=== PATIENT | male | born 1985 | race Caucasian/White ===

== ENCOUNTER 2017-06-28 06:46 | Emergency (ER) | payer BC, OTHER ==
[~2017-06-28 06:46] MED LIST: TOBR5DRO OD
--- NOTE | 2017-06-28 07:14 | ER Report ---
History and Physical Time Seen By MD: 07:14 Hx. of Stated Complaint: SUDDEN PAIN 6AM MID BACK TO BELLY BUTTON TO LEFT SIDE AND RADIATING TO LEFT TESTICLE HPI/ROS CHIEF COMPLAINT: Left flank pain HISTORY OF PRESENT ILLNESS: Patient is 32-year-old male with sudden onset of left-sided flank pain radiating to the left groin area that started suddenly at 6 AM. Severity onset was 10 out of 10 currently patient is 8 out of 10 patient has associated nausea with the symptoms. Patient has no prior history of similar symptoms. He denies dysuria or hematuria. He denies any fevers or chills. REVIEW OF SYSTEMS: Constitutional: No fever, no chills. Eyes: No discharge. ENT: No sore throat. Cardiovascular: No chest pain, no palpitations. Respiratory: No cough, no shortness of breath. Gastrointestinal: Left-sided flank pain, nausea no vomiting or diarrhea Genitourinary: No hematuria. Musculoskeletal: Left-sided flank pain Skin: No rashes. Neurological: No headache. Allergies: Coded Allergies: No Known Drug Allergies (Unverified , 06/28/17) Home Meds Discontinued Scripts Tobramycin (TOBRAMYCIN) 5 Ml Drops, 2 GTT OD Q4HWA, #1 BOT Prov:ALEX BLAKELY MD 11/05/15 Past Medical/Surgical History Noncontributory towards this chief complaint Hx Substance Use Disorder: No Constitutional Vital Sign - Last 24 Hours 06/28/17 06/28/17 06/28/17 06/28/17 06:46 07:01 07:01 07:16 Temp 97.5 Pulse ??? 49 ? Resp 20 B/P (MAP) 134/71 134/71 (92) Pulse Ox 100 O2 Delivery Room Air 06/28/17 06/28/17 06/28/17 06/28/17 07:31 07:33 08:00 08:01 Pulse ??? 43 B/P (MAP) 129/84 (99) 132/83 (99) Pulse Ox 100 06/28/17 06/28/17 06/28/17 08:16 08:30 08:31 Pulse 46 52 B/P (MAP) 130/85 (100) Pulse Ox 100 99 Physical Exam General/Constitutional: Patient is awake, alert, appears quite uncomfortable secondary to pain Head: Normocephalic and atraumatic. Eyes: Conjunctival clear, Pupils are equal and reactive to light. Extraocular muscles are intact and symmetrical. Sclera are clear and anicteric. Oropharyngeal: Mucous membranes are moist. There is no pharyngeal erythema or exudate. There are no palatal petechiae. Uvula is midline and symmetrical. Cardiovascular: Heart is regular rate and rhythm without audible murmurs, rubs or gallops. Pulmonary: Lungs are clear to auscultation bilaterally. There are no wheezes, rales, or rhonchi. Chest rise is symmetrical Abdomen: Soft, nontender, no guarding or peritoneal signs. : Normal bilateral testicular lie, normal bilateral cremasteric reflexes Extremities: No gross deformities, No peripheral cyanosis. Able to move all 4 extremities. Neuro: Alert and oriented X3, Skin: No rashes, skin is warm dry and well perfused. Medical Decision Making Data Points Result Diagram: 06/28/17 0730 06/28/17 0730 Laboratory Hematology Test 06/28/17 07:00 06/28/17 07:30 Urine Color Deanna Urine Clarity Slightly-cloudy Urine pH 5.0 pH (4.8-9.5) Urine Specific [place] 1.036 Urine Protein 30 mg/dL (NEGATIVE) Urine Glucose (UA) Negative mg/dL (NEGATIVE) Urine Ketones Trace mg/dL (NEGATIVE) Urine Blood Negative (NEGATIVE) Urine Nitrite Negative (NEGATIVE) Urine Bilirubin Negative (NEGATIVE) Urine Urobilinogen 2.0 mg/dL (0.2-1.9) Urine Leukocyte Esterase Negative (NEGATIVE) Urine RBC 3 /HPF (0-2/HPF) Urine WBC 2 /HPF (0-5/HPF) Urine Squamous Epithelial Cells Few /LPF (</=FEW) Urine Transitional Epithelial Cells Few /LPF (NONE-FEW) Urine Bacteria Negative /HPF (NONE-FEW) Urine Mucus Few /HPF (NONE-FEW) Red Blood Count 5.22 M/uL (4.00-5.60) Mean Corpuscular Volume 92.3 fL (80.0-96.0) Mean Corpuscular Hemoglobin 32.5 pg (26.0-33.0) Mean Corpuscular Hemoglobin Concent 35.2 g/dL (32.0-36.0) Red Cell Distribution Width 12.7 % (11.5-14.5) Mean Platelet Volume 7.4 fL (7.2-11.1) Neutrophils (%) (Auto) 54.8 % (39.4-72.5) Lymphocytes (%) (Auto) 31.3 % (17.6-49.6) Monocytes (%) (Auto) 10.2 % (4.1-12.4) Eosinophils (%) (Auto) 2.4 % (0.4-6.7) Basophils (%) (Auto) 1.3 % (0.3-1.4) Nucleated RBC Relative Count (auto) 0.0 /100WBC Neutrophils # (Auto) 4.9 K/uL (2.0-7.4) Lymphocytes # (Auto) 2.8 K/uL (1.3-3.6) Monocytes # (Auto) 0.9 K/uL (0.3-1.0) Eosinophils # (Auto) 0.2 K/uL (0.0-0.5) Basophils # (Auto) 0.1 K/uL (0.0-0.1) Nucleated RBC Absolute Count (auto) 0.00 K/uL Sodium Level 137 mmol/L (137-145) Potassium Level 3.2 mmol/L (3.5-5.0) Chloride Level 104 mmol/L (98-107) Carbon Dioxide Level 17 mmol/L (22-30) Blood Urea Nitrogen 21 mg/dl (9-21) Creatinine 1.10 mg/dl (0.66-1.25) Glomerular Filtration Rate Calc > 60.0 Random Glucose 137 mg/dl (75-110) Calcium Level 9.4 mg/dl (8.4-10.2) Total Bilirubin 0.9 mg/dl (0.2-1.3) Aspartate Amino Transf (AST/SGOT) 35 U/L (0-35) Alanine Aminotransferase (ALT/SGPT) 48 U/L (0-56) Alkaline Phosphatase 100 U/L (0-126) Total Protein 7.5 gm/dl (6.3-8.2) Albumin 4.5 g/dl (3.5-5.0) Lipase 111 U/L (23-300) Chemistry Test 06/28/17 07:00 06/28/17 07:30 Urine Color Deanna Urine Clarity Slightly-cloudy Urine pH 5.0 pH (4.8-9.5) Urine Specific [place] 1.036 Urine Protein 30 mg/dL (NEGATIVE) Urine Glucose (UA) Negative mg/dL (NEGATIVE) Urine Ketones Trace mg/dL (NEGATIVE) Urine Blood Negative (NEGATIVE) Urine Nitrite Negative (NEGATIVE) Urine Bilirubin Negative (NEGATIVE) Urine Urobilinogen 2.0 mg/dL (0.2-1.9) Urine Leukocyte Esterase Negative (NEGATIVE) Urine RBC 3 /HPF (0-2/HPF) Urine WBC 2 /HPF (0-5/HPF) Urine Squamous Epithelial Cells Few /LPF (</=FEW) Urine Transitional Epithelial Cells Few /LPF (NONE-FEW) Urine Bacteria Negative /HPF (NONE-FEW) Urine Mucus Few /HPF (NONE-FEW) White Blood Count 9.0 k/uL (4.5-11.0) Red Blood Count 5.22 M/uL (4.00-5.60) Hemoglobin 16.9 g/dL (14.0-18.0) Hematocrit 48.2 % (42.0-52.0) Mean Corpuscular Volume 92.3 fL (80.0-96.0) Mean Corpuscular Hemoglobin 32.5 pg (26.0-33.0) Mean Corpuscular Hemoglobin Concent 35.2 g/dL (32.0-36.0) Red Cell Distribution Width 12.7 % (11.5-14.5) Platelet Count 247 K/uL (150-450) Mean Platelet Volume 7.4 fL (7.2-11.1) Neutrophils (%) (Auto) 54.8 % (39.4-72.5) Lymphocytes (%) (Auto) 31.3 % (17.6-49.6) Monocytes (%) (Auto) 10.2 % (4.1-12.4) Eosinophils (%) (Auto) 2.4 % (0.4-6.7) Basophils (%) (Auto) 1.3 % (0.3-1.4) Nucleated RBC Relative Count (auto) 0.0 /100WBC Neutrophils # (Auto) 4.9 K/uL (2.0-7.4) Lymphocytes # (Auto) 2.8 K/uL (1.3-3.6) Monocytes # (Auto) 0.9 K/uL (0.3-1.0) Eosinophils # (Auto) 0.2 K/uL (0.0-0.5) Basophils # (Auto) 0.1 K/uL (0.0-0.1) Nucleated RBC Absolute Count (auto) 0.00 K/uL Glomerular Filtration Rate Calc > 60.0 Calcium Level 9.4 mg/dl (8.4-10.2) Total Bilirubin 0.9 mg/dl (0.2-1.3) Aspartate Amino Transf (AST/SGOT) 35 U/L (0-35) Alanine Aminotransferase (ALT/SGPT) 48 U/L (0-56) Alkaline Phosphatase 100 U/L (0-126) Total Protein 7.5 gm/dl (6.3-8.2) Albumin 4.5 g/dl (3.5-5.0) Lipase 111 U/L (23-300) Urinalysis Test 06/28/17 07:00 Urine Color Deanna Urine Clarity Slightly-cloudy Urine pH 5.0 pH (4.8-9.5) Urine Specific [place] 1.036 Urine Protein 30 mg/dL (NEGATIVE) Urine Glucose (UA) Negative mg/dL (NEGATIVE) Urine Ketones Trace mg/dL (NEGATIVE) Urine Blood Negative (NEGATIVE) Urine Nitrite Negative (NEGATIVE) Urine Bilirubin Negative (NEGATIVE) Urine Urobilinogen 2.0 mg/dL (0.2-1.9) Urine Leukocyte Esterase Negative (NEGATIVE) Urine RBC 3 /HPF (0-2/HPF) Urine WBC 2 /HPF (0-5/HPF) Urine Squamous Epithelial Cells Few /LPF (</=FEW) Urine Transitional Epithelial Cells Few /LPF (NONE-FEW) Urine Bacteria Negative /HPF (NONE-FEW) Urine Mucus Few /HPF (NONE-FEW) EKG/Imaging Imaging FACILITY: [facility] PATIENT NAME: Brandon Mendez : 1985 MR: [id number] V: [id number] EXAM DATE: ORDERING PHYSICIAN: HEYDI NICHOLE TECHNOLOGIST: Location: [facility] - [place] Patient: Brandon Mendez : 1985 Visit/Account:[id number] Date of Sevice: 06/28/2017 CT abdomen and pelvis without IV contrast - Renal Stone Protocol History: Left flank pain COMPARISON STUDIES: none. TECHNIQUE: Axial CT images were obtained through the kidneys, ureters, and bladder without IV contrast. Reformatted coronal and sagittal images were also obtained. One of the following dose optimization techniques was utilized in the performance of this exam: Automated exposure control; adjustment of the mA and/ or kV according to the patient's size; or use of an iterative reconstruction technique. Specific details can be referenced in the facility's radiology CT exam operational policy. FINDINGS: CT Abdomen and Pelvis- Chest bases: Right major fissural 3 mm nodule, image 5, and a 3 mm noncalcified nodule adjacent to the pleura, image 4 are noted. Liver: Normal. Spleen: size is normal. Gallbladder and bile ducts: Gallbladder is present. Bile ducts are normal caliber. Pancreas: negative Adrenal glands: negative Right kidney and ureter: negative Left kidney and ureter: Mild distention of the left renal collecting system can be followed inferior to the UVJ, where there is a 2 mm stone in the distal ureter. Two punctate left kidney upper pole stones are nonobstructing, the largest measuring 2 mm. Renal parenchymal thickness is preserved. Pelvic structures: negative Bowel and mesenteries: negative Ascites: None Vessels: negative Musculoskeletal: Negative Body wall: negative Abd/Pelvis lymph node assessment: negative IMPRESSION: 1. Mild left renal collecting system distention caused by a 2 mm stone in the distal ureter at the UVJ. 2. Nonobstructing left nephrolithiasis. 3. Two small noncalcified nodules in the right lung base do not warrant imaging follow-up. Report Dictated By: Lynn Lizarraga MD at 06/28/2017 8:06 AM Report E-Signed By: Lynn Lizarraga MD at 06/28/2017 8:11 AM WSN:[id number] ED Course/Re-evaluation ED Course 06/28/2017 7:25:01 am bedside ultrasound shows moderate hydronephrosis of the left kidney. This would be consistent with suspected ureteral lithiasis. Plan at this time will be bloodwork including CBC CMP lipase, we'll obtain urinalysis. Also will place IV for pain medication we will give 50 mg of IV Toradol 4 mg of IV morphine 4 mg of IV Zofran. 06/28/2017 7:52:[address] scan shows a 1-2 mm stone at the left ureterovesicular junction. I am currently awaiting official radiological read. Pain is decreased according to the patient from 9.5-3. We will give an additional dose of morphine at this time. Decision to Disposition Date: Jun 28, 2017 Decision to Disposition Time: 09:03 Depart Departure Latest Vital Signs Vital Signs Date Time Temp Pulse Resp B/P (MAP) Pulse Ox O2 Delivery O2 Flow Rate FiO2 06/28/17 08:31 52 99 06/28/17 08:30 130/85 (100) 06/28/17 07:01 97.5 20 Room Air Impression: Primary Impression: Kidney stone Condition: Improved Disposition: HOME OR SELF-CARE Referrals: GERMÁN CARDENAS MD Schedule follow-up appointment for your kidney stone in the next few weeks. New Scripts Ondansetron (ZOFRAN ODT) 4 Mg Tab.rapdis 4 MG PO Q8H for Nausea, #20 TAB.AIMEE 0 Refills Prov: HEYDI NICHOLE MD 06/28/17 Oxycodone Hcl/Acet 5/325 Mg (ENDOCET 5-325 TABLET) 1 Each Tablet 1-2 EACH PO Q4-6H for PAIN, #20 TAB 0 Refills Prov: HEYDI NICHOLE MD 06/28/17 Departure Forms: ER Transition Record, Medications Reconciliation, Off Work/ School Form, School or Work Release?: Work Number of days to be released: 2 Patient Portal Information Patient Instructions: Kidney Stones (ED) HEYDI NICHOLE MD Jun 28, 2017 07:14
[2017-06-28] MEDS ORDERED: KETOROLAC 30 MG/ML VIAL IVP ONE (07:15)
[2017-06-28] MEDS ORDERED: ONDANSETRON 4 MG/2 ML VIAL IVP ONE (07:15)
[2017-06-28] MEDS ORDERED: MORPHINE 4 MG/ML SDV IVP ONE ×2 (07:15→07:55)
[2017-06-28 07:41] LABS: PLATELET COUNT, AUTOMATED 247 K/uL (150-450)
[2017-06-28] MEDS ORDERED: KETOROLAC 15 MG/ML VIAL IVP ONE (08:10)
--- NOTE | 2017-06-28 08:16 | RADIOLOGY IMAGING REPORT ---
FACILITY: [facility] - [place] PATIENT NAME: Brandon Mendez : 1985 MR: [id number] V: [id number] EXAM DATE: ORDERING PHYSICIAN: HEYDI NICHOLE TECHNOLOGIST: Location: [facility] [place] Patient: Brandon Mendez : 1985 Visit/Account:[id number] Date of Sevice: 06/28/2017 CT abdomen and pelvis without IV contrast - Renal Stone Protocol History: Left flank pain COMPARISON STUDIES: none. TECHNIQUE: Axial CT images were obtained through the kidneys, ureters, and bladder without IV contr ast. Reformatted coronal and sagittal images were also obtained. One of the following dose optimization techniques was utilized in the performance of this exam: Autom ated exposure control; adjustment of the mA and/or kV according to the patient's size; or use of an i terative reconstruction technique. Specific details can be referenced in the facility's radiology C T exam operational policy. FINDINGS: CT Abdomen and Pelvis- Chest bases: Right major fissural 3 mm nodule, image 5, and a 3 mm noncalcified nodule adjacent to th e pleura, image 4 are noted. Liver: Normal. Spleen: size is normal. Gallbladder and bile ducts: Gallbladder is present. Bile ducts are normal caliber. Pancreas: negative Adrenal glands: negative Right kidney and ureter: negative Left kidney and ureter: Mild distention of the left renal collecting system can be followed inferior to the UVJ, where there is a 2 mm stone in the distal ureter. Two punctate left kidney upper pole s tones are nonobstructing, the largest measuring 2 mm. Renal parenchymal thickness is preserved. Pelvic structures: negative Bowel and mesenteries: negative Ascites: None Vessels: negative Musculoskeletal: Negative Body wall: negative Abd/Pelvis lymph node assessment: negative IMPRESSION: 1. Mild left renal collecting system distention caused by a 2 mm stone in the distal ureter at the UV J. 2. Nonobstructing left nephrolithiasis. 3. Two small noncalcified nodules in the right lung base do not warrant imaging follow-up. Report Dictated By: Lynn Lizarraga MD at 06/28/2017 8:06 AM Report E-Signed By: Lynn Lizarraga MD at 06/28/2017 8:11 AM WSN:[id number]
[2017-06-28] MEDS ORDERED: OXYC-854 PO (09:12)
[2017-06-28] MEDS ORDERED: ONDA4TAB PO (09:12)
[2017-06-28 09:24] VITALS: BP 128/81
== END 2017-06-28 09:36 | disposition home or self-care (01) ==
LOC: ER 06:47
DX: N20.0 Calculus of kidney (principal)
CPT/HCPCS: 74176; 81001; 83690; 85025; 96374; 96375; 96376; 99284; J1885; J2405; 82040; 82247; 82310; 82374; 82435; 82565; 82947; 84075; 84132; 84155; 84295; 84450; 84460; 84520; J2270

== ENCOUNTER → 2018-02-28 | Outpatient (CLI) | payer BC ==
[~2018-02-28] MED LIST changes: +LOR5/325 PO; +ONDA4TAB PO; +OXYC-854 PO
--- NOTE | 2018-02-28 15:52 | RADIOLOGY IMAGING REPORT ---
FACILITY: [facility] - [place] PATIENT NAME: Brandon Mendez : 1985 MR: [id number] V: [id number] EXAM DATE: ORDERING PHYSICIAN: GERMÁN CARDENAS TECHNOLOGIST: Location: [facility] [place] Patient: Brandon Mendez : 1985 Visit/Account:[id number] Date of Sevice: 02/28/2018 CT abdomen and pelvis without IV contrast - Renal Stone Protocol History: Nephrolithiasis COMPARISON STUDIES: CT abdomen and pelvis 06/28/2017. TECHNIQUE: Axial CT images were obtained through the kidneys, ureters, and bladder without IV contr ast. Reformatted coronal and sagittal images were also obtained. One of the following dose optimization techniques was utilized in the performance of this exam: Autom ated exposure control; adjustment of the mA and/or kV according to the patient's size; or use of an i terative reconstruction technique. Specific details can be referenced in the facility's radiology C T exam operational policy. FINDINGS: CT Abdomen and Pelvis- Chest bases: Noncalcified right major fissural nodule, 3 mm, image 9, series 2, and right lower lobe 3 mm nodule adjacent to the pleura, image four, are unchanged. Liver: Normal. Spleen: size is normal. Gallbladder and bile ducts: Gallbladder is present. Bile ducts are normal caliber. Pancreas: negative Adrenal glands: negative Right kidney and ureter: No renal stones or hydronephrosis. Renal parenchymal thickness is preserve d. Left kidney and ureter: A punctate stone in the left kidney upper pole, image 104 series 3, is uncha nged. The other upper pole stone is not seen. The left distal stone in the ureter has passed. Ther e is no hydronephrosis. Renal parenchymal thickness is preserved. Pelvic structures: negative Bowel and mesenteries: negative Ascites: None Vessels: negative Musculoskeletal: Negative Body wall: negative Abd/Pelvis lymph node assessment: negative IMPRESSION: 1. Left kidney upper pole punctate nonobstructing stone is unchanged. The other upper pole stone is no longer seen. 2. Interval passage of the small stone in the left distal ureter at the UVJ and resolution of hydron ephrosis. Report Dictated By: Lynn Lizarraga MD at 02/28/2018 3:42 PM Report E-Signed By: Lynn Lizarraga MD at 02/28/2018 3:48 PM WSN:[email or web address]
== END ==
LOC: CT 14:54
DX: N20.0 Calculus of kidney (principal)
CPT/HCPCS: 74176

== ENCOUNTER 2018-03-10 02:40 | Day surgery (SDC) | payer BC ==
[~2018-03-10] VITALS: Ht 167.6 cm; Wt 67.6 kg
[2018-03-10 10:14] LABS: PLATELET COUNT, AUTOMATED 225 K/uL (150-450)
[2018-03-10 10:15] VITALS: BP 121/80
[2018-03-10 10:24] LABS: INR 0.95
[2018-03-10] MEDS ORDERED: METOCLOPRAMIDE 10 MG/2 ML SDV ONE (10:47)
[2018-03-10] MEDS ORDERED: LIDOCAINE MPF 1% 5 ML VIAL ONE (10:47)
[2018-03-10] MEDS ORDERED: fentaNYL CITR 100 MCG/2 ML AMP ONE ×4 (10:47→15:06)
[2018-03-10] MEDS ORDERED: ONDANSETRON 4 MG/2 ML VIAL ONE (10:47)
[2018-03-10] MEDS ORDERED: PROPOFOL EMUL(*) 10MG/ML 20 ML 20 ML ONE (10:47)
[2018-03-10] MEDS ORDERED: DEXAMETHASONE SOD 4 MG/ML VIAL ONE (10:47)
[2018-03-10] MEDS ORDERED: GENTAMICIN(*) 80 MG/2 ML VIAL 160 MG in NS(*) 0.9% 100 ML BAG 100 ML IVPB ONE (11:15)
[2018-03-10] MEDS ORDERED: MIDAZOLAM 2 MG/2 ML VIAL IVP PRN (11:15)
[2018-03-10] MEDS ORDERED: cefTRIAXone(*) 1 GM VIAL 1 GM in NS(*) 0.9% 100 ML ADDVANT BAG 100 ML IVPB ONE (11:15)
[2018-03-10] MEDS ORDERED: FAMOTIDINE 20 MG TAB PO ONE (11:15)
[2018-03-10] MEDS ORDERED: LIDOCAINE/SOD BICARB 8.4% SYR ID ONE (11:15)
[2018-03-10] MEDS ORDERED: NORMOSOL R SOLN(*) 1000 ML BAG 1,000 ML IV PRN (11:15)
--- NOTE | 2018-03-10 11:40 | RADIOLOGY IMAGING REPORT ---
FACILITY: [facility] - [place] PATIENT NAME: Brandon Mendez : 1985 MR: [id number] V: [id number] EXAM DATE: ORDERING PHYSICIAN: GERMÁN CARDENAS TECHNOLOGIST: Location: [facility] [place] Patient: Brandon Mendez : 1985 Visit/Account:[id number] Date of Sevice: 03/04/2018 Examination: Abdomen single view HISTORY: Kidney stones. FINDINGS: Single frontal view of the abdomen is submitted on 2 images. The intestinal bowel gas patte rn is normal. Stool and bowel gas overlie the bilateral renal contours. This limits evaluation for sm all stones. No radiographically apparent calculi are seen. Lung bases are clear. No osseous abnormali ty. IMPRESSION: 1. Normal bowel gas pattern. 2. No radiographically apparent renal calculi. Report Dictated By: Arvind Lou at 03/10/2018 11:32 AM Report E-Signed By: Arvind Lou at 03/10/2018 11:35 AM WSN:[id number]
[2018-03-10] MEDS ORDERED: IOPAMIDOL-200 50 ML VIAL IS ONE (12:37)
[2018-03-10] MEDS ORDERED: HYDR-653 PO (14:10)
[2018-03-10] MEDS ORDERED: FAMO20TA28 PO (14:10)
[2018-03-10] MEDS ORDERED: IBUP800T37 PO (14:11)
[2018-03-10] MEDS ORDERED: CIPR-344 PO (14:11)
[2018-03-10 15:42] VITALS: BP 137/90
[2018-03-10] MEDS ORDERED: APAP/HYDROCODONE 325/5 TAB ONE (15:42)
[2018-03-10 16:04] VITALS: BP 129/90
[2018-03-10 16:05] VITALS: BP 130/76
--- NOTE | 2018-03-11 02:53 | OPERATIVE REPORT 1 ---
EVENT DATE: March 10, 2018 SURGEON: Rodney Catalan MD ANESTHESIOLOGIST: Reilly Perales MD ANESTHESIA: General. PREOPERATIVE DIAGNOSES 1. Right flank pain. 2. Possible ureteral stone. 3. Right renal lithiasis. 4. Left renal lithiasis. POSTOPERATIVE DIAGNOSES 1. Right flank pain. 2. Possible ureteral stone. 3. Right renal lithiasis. 4. Left renal lithiasis. 5. No evidence of right ureteral lithiasis. PROCEDURES PERFORMED 1. Cystourethroscopy. 2. Right ureteral pyelograms. 3. Bilateral external stent placement and removal. 4. Right extracorporeal shockwave lithotripsy, one stone. 5. Left extracorporeal shockwave lithotripsy, one stone. DESCRIPTION OF PROCEDURE Under a general anesthetic, the patient was prepped and draped in the standard lithotomy position. The 21 panendoscope admitted through the urethra into the bladder. No stones were visible in the bladder. Both ureteral orifices were normal, without inflammation or swelling. A 10 cone tip was introduced into the right distal ureteral orifice. Ureteral pyelograms showed a normal right ureter that drained freely visually and radiographically. Bilateral external stents were placed, 5 whistle tips, and then subsequently removed after conclusion of the ESWLs. Patient had a total of 1500 shocks administered to the upper pole collecting system to treat the two to three small right renal calculi. After treatment, the patient was repositioned for left extracorporeal shockwave lithotripsy in the upper pole area on the left. A total of 1500 shocks were administered to the small calculi in that area. The external stents were removed at conclusion of the procedure. The bladder was irrigated free of grossly bloody urine. The irrigation was barely pink tinged at conclusion of the irrigation. Patient tolerated the procedures satisfactorily and returned to the recovery room in satisfactory condition. This is a 33-year-old white male complaining of intermittent passage of stones bilaterally. Earlier in the year, he had a diagnosis of a left distal ureteral stone that passed spontaneously and had small calculi, especially in the left kidney, noted at that time. Patient stated he passed another stone from the left side probably in October 2017. No stones have been retrieved to date. Patient had the onset of acute right flank pain and was seen in the office, and CT-IVP showed no evidence of ureteral pyelocaliectasis on the right, possible small calculi in the upper pole area, as read by me. The radiologist was not sure. He thought there were small calculi in the left kidney. Options were discussed with the patient. Patient stated adamantly that he would like to avoid any future attacks of ureteral or renal colic. Patient requested treatment of small calculi in the kidneys. That has been accomplished; see operative note for details. Patient has been cautioned several times and advised about forcing of fluids, 12 glasses of water a day or more, to hopefully prevent future stones. Patient is pending possible stone analysis as well as metabolic workup for etiology as to his stones. Have discussed the medullary sponge kidney-type condition and treatment thereof, and he seems to understand, especially of forcing fluids. Also, I have advised Mr. Mendez about percussing of the kidney every evening at bedtime. In case he forms a small stone, hopefully he can jar it loose and pass it freely without any difficulty. Patient will be ready for discharge home when alert and functional, to force fluids at 12 glasses of water or more per day. Activities are as tolerated. Plan followup on 25 March 2018. He is to call for an appointment. He is to strain all his urine. He was sent home with strainers. He is to continue the usual medications. Copy of instructions was given to the patient. Patient is to percuss both kidneys frequently to facilitate passage of any stone particles. Patient was given copy of instruction for renal percussion prior to leaving the hospital. Patient has my personal cell phone number to contact me if he has any problems. CHERIE
== END 2018-03-10 15:42 | disposition home or self-care (01) ==
LOC: OR 02:40
DX: N20.0 Calculus of kidney (principal)
CPT/HCPCS: 36415; 50590; 52005; 74018; 85025; 85610; C1758; C1769; C1894; J0696; J1100; J1580; J2001; J2405; J2704; J2765; J3010; J7050; Q9966